=== PATIENT | female | born 1990 | race African-American/Black ===

== ENCOUNTER 2017-07-31 23:11 | Emergency (ER) | payer MEDICAID ==
[~2017-07-31] VITALS: Ht 154.9 cm; Wt 81.8 kg
[~2017-07-31 23:11] MED LIST: AMOXICILLIN 50500 MG PO; CLEOCIN HCL300 MG PO; DITROPAN XL15 MG PO; DOXYCYCLINE 10100 MG PO; FLEXERIL 1010 MG/TAB PO; LAMISIL1% TOP; MOTRIN 600600 MG/TAB PO; NAPROSYN500 MG PO; NO HOME MEDICATIONS; NORCO 325 MG-51 TAB PO; PERCOCET 325 MG1 TA2 PO; PRENATAL1 TA1 PO; PYRIDIUM 100MG100 MG PO
[2017-07-31 23:15] VITALS: BP 134/80; TEMP 98.6
[2017-08-01 01:30] VITALS: PULSE 85
== END 2017-08-01 01:32 | disposition home or self-care (01) ==
LOC: COL.ER 23:11
DX: R51 Headache (principal); F17.210 Nicotine dependence, cigarettes, uncomplicated; Z98.890 Other specified postprocedural states
CPT/HCPCS: J1200; J2765; J7030

== ENCOUNTER 2017-10-03 09:33 | Emergency (ER) | payer MEDICAID ==
[~2017-10-03] VITALS: Ht 154.9 cm; Wt 81.8 kg
[2017-10-03 09:38] VITALS: BP 122/66; TEMP 98.3
[2017-10-03 10:21] LABS: COLLECTION METHOD CLEAN CATCH
[2017-10-03 10:27] LABS: BASO % 0.4 % (0.0-2.0); EOS % 0.7 % (0-4.0); GRAN # 3.2 (1.4-6.5); GRAN % 60.1 % (42.2-75.2); HEMATOCRIT 40.1 % (37.0-47.0); HEMOGLOBIN 12.8 g/dl (12.5-16.0); LYMPH # 1.7 (1.2-3.4); LYMPH % 31.9 % (20.0-51.0); MEAN CELL VOLUME 92 fl (80.0-100.0); MEAN CORPUSCULAR HEMOGLOBIN 29 pg (27.0-31.0); MEAN CORPUSCULAR HGB CONC 32 g/dl (33.0-37.0); MEAN PLATELET VOLUME 11.8 fl (7.4-10.4); MONO # 0.4 (0.1-0.6); MONO % 6.7 % (1.7-9.3); PLATELET COUNT 222 K/mm3 (130-400); RED BLOOD COUNT 4.37 M/mm3 (4.10-5.30); WHITE BLOOD COUNT 5.4 K/mm3 (4.8-10.8)
[2017-10-03 10:30] LABS: MUCOUS Present /lpf; PH 5 (5-8); URINE APPEARANCE Hazy; URINE BACTERIA None Seen /hpf; URINE BILIRUBIN Negative (NEGATIVE); URINE BLOOD 2+ (NEGATIVE); URINE COLOR Yellow; URINE GLUCOSE Negative (NEGATIVE); URINE KETONE Negative (NEGATIVE); URINE LEUKOCYTE ESTERASE Negative (NEGATIVE); URINE PROTEIN(semi-quant) Negative (NEGATIVE); URINE RBC 0-2 /hpf; URINE WBC 0-2 /hpf
[2017-10-03 10:44] LABS: ADJUSTED CALCIUM 9.3 mg/dL (8.4-10.2); ALBUMIN 4.1 gm/dL (3.5-5.0); BILIRUBIN,TOTAL 0.4 mg/dL (0.0-1.0); C-REACTIVE PROTEIN 1.2 mg/dL (0.0-0.9); CALCIUM 9.4 mg/dL (8.4-10.2); CREATININE, serum 0.93 mg/dL (0.52-1.25); POTASSIUM 3.9 mmol/L (3.4-5.0); TOTAL PROTEIN 7.6 gm/dL (6.4-8.2)
[2017-10-03] MEDS ORDERED: ZOFRAN 4MG T4 MG/TAB PO (11:04)
[2017-10-03 11:22] VITALS: PULSE 59
== END 2017-10-03 11:22 | disposition home or self-care (01) ==
LOC: COL.ER 09:33
PROVIDERS: Nurse Practitioner
DX: R10.11 Right upper quadrant pain (principal); F17.210 Nicotine dependence, cigarettes, uncomplicated; Z98.890 Other specified postprocedural states
CPT/HCPCS: J1885; J2405

== ENCOUNTER 2017-11-16 11:23 | Emergency (ER) | payer MEDICAID ==
[~2017-11-16] VITALS: Ht 157.5 cm; Wt 81.8 kg
[~2017-11-16 11:23] MED LIST changes: +ZOFRAN 4MG T4 MG/TAB PO
[2017-11-16 11:29] VITALS: TEMP 97.9
[2017-11-16 12:31] LABS: COLLECTION METHOD CLEAN CATCH
[2017-11-16 12:37] LABS: BASO % 0.6 % (0.0-2.0); EOS # 0.1 (0.0-0.7); EOS % 1.3 % (0-4.0); GRAN # 3.9 (1.4-6.5); GRAN % 63.1 % (42.2-75.2); HEMATOCRIT 39.8 % (37.0-47.0); LYMPH # 1.8 (1.2-3.4); LYMPH % 28.7 % (20.0-51.0); MEAN CELL VOLUME 90 fl (80.0-100.0); MEAN CORPUSCULAR HEMOGLOBIN 29 pg (27.0-31.0); MEAN CORPUSCULAR HGB CONC 33 g/dl (33.0-37.0); MEAN PLATELET VOLUME 11.4 fl (7.4-10.4); MONO # 0.4 (0.1-0.6); PLATELET COUNT 241 K/mm3 (130-400); RED BLOOD COUNT 4.42 M/mm3 (4.10-5.30); REDCELL DISTRIBUTION WIDTH-CV 14.6 % (11.5-14.5)
[2017-11-16 12:45] LABS: MUCOUS Present /lpf; PH 6 (5-8); URINE APPEARANCE Hazy; URINE BACTERIA None Seen /hpf; URINE BILIRUBIN Negative (NEGATIVE); URINE BLOOD 1+ (NEGATIVE); URINE COLOR Yellow; URINE GLUCOSE Negative (NEGATIVE); URINE KETONE Negative (NEGATIVE); URINE LEUKOCYTE ESTERASE Negative (NEGATIVE); URINE NITRATE Negative (NEGATIVE); URINE PROTEIN(semi-quant) 1+ (NEGATIVE); URINE RBC 0-2 /hpf
[2017-11-16 13:10] LABS: ALBUMIN 4.2 gm/dL (3.5-5.0); BILIRUBIN,TOTAL 0.3 mg/dL (0.0-1.0); CALCIUM 9.4 mg/dL (8.4-10.2); CREATININE, serum 0.87 mg/dL (0.52-1.25); POTASSIUM 4.3 mmol/L (3.4-5.0); TOTAL PROTEIN 7.7 gm/dL (6.4-8.2)
[2017-11-16] MEDS ORDERED: ZOFRAN 4MG T4 MG/TAB PO (13:36)
[2017-11-16 13:57] VITALS: BP 130/60; PULSE 68
== END 2017-11-16 13:59 | disposition home or self-care (01) ==
LOC: COL.ER 11:23
PROVIDERS: Emergency Medicine
DX: R10.11 Right upper quadrant pain (principal); R11.2 Nausea with vomiting, unspecified
CPT/HCPCS: J1885; J2405; J7030

== ENCOUNTER → 2017-11-19 | Outpatient (CLI) | payer MEDICAID | LOC: COL.RAD 09:50 | DX: R10.11 Right upper quadrant pain (principal); R11.10 Vomiting, unspecified ==

== ENCOUNTER 2018-01-11 09:29 | Emergency (ER) | payer MEDICAID ==
[~2018-01-11] VITALS: Ht 154.9 cm; Wt 81.8 kg
[2018-01-11 09:33] VITALS: BP 133/75; TEMP 99.2
[2018-01-11 10:11] LABS: COLLECTION METHOD CLEAN CATCH
[2018-01-11 10:25] LABS: MUCOUS Present /lpf; PH 5 (5-8); URINE APPEARANCE Hazy; URINE BACTERIA Rare /hpf; URINE BILIRUBIN Negative (NEGATIVE); URINE BLOOD 3+ (NEGATIVE); URINE COLOR Yellow; URINE GLUCOSE Negative (NEGATIVE); URINE KETONE 1+ (NEGATIVE); URINE LEUKOCYTE ESTERASE Negative (NEGATIVE); URINE NITRATE Negative (NEGATIVE); URINE PROTEIN(semi-quant) 1+ (NEGATIVE); URINE RBC >50 /hpf
[2018-01-11 11:03] LABS: HIV 1/2 Antibodies Non-Reactive; HIV-1p24 Antigen Non-Reactive
[2018-01-11] MEDS ORDERED: FLAGYL500 MG PO (12:00)
[2018-01-11 12:09] VITALS: PULSE 79
[2018-01-11 17:32] LABS: HEPATITIS B SURFACE ANTIGEN Negative (()); HEPATITIS C VIRUS ANTIBODY Negative (())
[2018-01-13 23:34] LABS: RPR (VDRL) Non-reactive (())
== END 2018-01-11 12:10 | disposition home or self-care (01) ==
LOC: COL.ER 09:29
PROVIDERS: Nurse Practitioner Primary Care
DX: N76.0 Acute vaginitis (principal); F17.210 Nicotine dependence, cigarettes, uncomplicated; Z20.2 Contact with and (suspected) exposure to infections with a predominantly sexual mode of transmission; Z98.890 Other specified postprocedural states
CPT/HCPCS: J0696

== ENCOUNTER 2018-02-23 11:35 | Emergency (ER) | payer MEDICAID ==
[~2018-02-23] VITALS: Ht 154.9 cm; Wt 77.3 kg
[~2018-02-23 11:35] MED LIST changes: +FLAGYL500 MG PO
[2018-02-23 12:21] VITALS: BP 125/66; PULSE 94; TEMP 97.6
== END 2018-02-23 12:53 | disposition home or self-care (01) ==
LOC: COL.ER 11:35
DX: S30.0XXA Contusion of lower back and pelvis, initial encounter (principal); F17.210 Nicotine dependence, cigarettes, uncomplicated; Z86.14 Personal history of Methicillin resistant Staphylococcus aureus infection; Z98.890 Other specified postprocedural states; W01.0XXA Fall on same level from slipping, tripping and stumbling without subsequent striking against object, initial encounter; Y92.009 Unspecified place in unspecified non-institutional (private) residence as the place of occurrence of the external cause

== ENCOUNTER 2018-04-10 15:34 | Emergency (ER) | payer MEDICAID ==
[~2018-04-10] VITALS: Ht 154.9 cm; Wt 77.3 kg
[2018-04-10 15:36] VITALS: BP 146/70; PULSE 75; TEMP 98.3
[2018-04-10] MEDS ORDERED: BACTRIM DS 8001 TAB PO (16:34)
== END 2018-04-10 16:44 | disposition home or self-care (01) ==
LOC: COL.ER 15:34
DX: L02.416 Cutaneous abscess of left lower limb (principal); Z98.890 Other specified postprocedural states; F17.210 Nicotine dependence, cigarettes, uncomplicated